=== PATIENT | female | born 1955 | race Caucasian/White ===

== ENCOUNTER 2018-11-12 06:32 | Day surgery (SDC) | payer BC ==
[~2018-11-12] VITALS: Ht 165.1 cm; Wt 94.0 kg
[~2018-11-12 06:32] MED LIST: B Complex #11 EACH PO; CALCIUM 1,0001 EACH PO; FLAXSEED1000 MG PO; Fish Oil 10001000 MG PO; LO-DOSE ASPIRIN81 MG PO; METAMUCIL FREE822 GM PO; Ramipril10 MG PO; SELENIUM200 MC2 PO; VITAMIN D32000 UNIT PO
--- NOTE | 2018-11-12 08:47 | NUR ---
11/12/18 0847 Carline Mg PT REFUSED DRINK SAYS SHE WILL DRINK SOMETHING AT THE [facility].
== END 2018-11-12 09:00 | disposition home or self-care (01) ==
LOC: ORSCSDS 06:32
PROVIDERS: Surgery
PROC: 0DBL8ZX Excision of Transverse Colon, Via Natural or Artificial Opening Endoscopic, Diagnostic (ICD-10-PCS; principal; 2018-11-12 08:00)
PROC: 0DBK8ZX Excision of Ascending Colon, Via Natural or Artificial Opening Endoscopic, Diagnostic (ICD-10-PCS; principal; 2018-11-12 08:00)
DX: Z12.11 Encounter for screening for malignant neoplasm of colon (principal); D12.2 Benign neoplasm of ascending colon; D12.3 Benign neoplasm of transverse colon; K57.30 Diverticulosis of large intestine without perforation or abscess without bleeding; I10 Essential (primary) hypertension; E78.5 Hyperlipidemia, unspecified; Z79.82 Long term (current) use of aspirin; Z79.899 Other long term (current) drug therapy
CPT/HCPCS: 88305; J1980; J2405; J2704; J7120

== ENCOUNTER 2019-07-03 07:33 | Emergency (ER) | payer MEDICARE, BC ==
[~2019-07-03] VITALS: Ht 165.1 cm; Wt 90.7 kg
[2019-07-03] MEDS ORDERED: BENZ100A PO (08:58)
[2019-07-03] MEDS ORDERED: DEXT30SU PO (08:58)
[2019-07-03] MEDS ORDERED: Zithromax250 MG PO (08:58)
== END 2019-07-03 09:27 | disposition home or self-care (01) ==
LOC: ER 07:33
DX: J02.9 Acute pharyngitis, unspecified (principal)
CPT/HCPCS: 87081; 87430; 99283; J1100

== ENCOUNTER 2021-10-09 08:36 | Emergency (ER) | payer MEDICARE, BC ==
[~2021-10-09] VITALS: Ht 167.6 cm; Wt 90.7 kg
[~2021-10-09 08:36] MED LIST changes: +BENZ100A PO; +DEXT30SU PO; +Zithromax250 MG PO
[2021-10-09] MEDS ORDERED: MECL25 PO (09:40)
== END 2021-10-09 10:25 | disposition home or self-care (01) ==
LOC: ER 08:36
DX: R42 Dizziness and giddiness (principal); R03.0 Elevated blood-pressure reading, without diagnosis of hypertension
CPT/HCPCS: 93005; 93010; 99284-25; A9270

== ENCOUNTER 2024-12-11 06:55 | Day surgery (SDC) | payer OTHER ==
[~2024-12-11] VITALS: Ht 165.1 cm; Wt 90.1 kg
[~2024-12-11 06:55] MED LIST changes: +MECL25 PO
[2024-12-11] MEDS ORDERED: propofoL 50 ML IV ONE (07:28)
[2024-12-11] MEDS ORDERED: Lactated Ringer's 1,000 ML IV ONE ×2 (07:28→08:10)
[2024-12-11 09:50] VITALS: BP 110/78
== END 2024-12-11 09:35 | disposition home or self-care (01) ==
LOC: ORSCSDS 06:55
PROVIDERS: Surgery
PROC: 0DJD8ZZ Inspection of Lower Intestinal Tract, Via Natural or Artificial Opening Endoscopic (ICD-10-PCS; principal; 2024-12-11 08:30)
DX: Z12.11 Encounter for screening for malignant neoplasm of colon (principal); Z86.0100 Personal history of colon polyps, unspecified; K57.30 Diverticulosis of large intestine without perforation or abscess without bleeding; I10 Essential (primary) hypertension; E78.5 Hyperlipidemia, unspecified; Z85.3 Personal history of malignant neoplasm of breast; Z79.899 Other long term (current) drug therapy
CPT/HCPCS: J2704; J7120